=== PATIENT | female | born 1940 | race Caucasian/White ===

== ENCOUNTER 2020-02-20 15:21 | Outpatient (CLI) | payer MEDICARE ==
--- NOTE | 2020-02-20 16:36 | XRAY Report ---
PROCEDURE: Knee 4 View RT INDICATIONS: SPRAIN OF MEDIAL COLLATERAL LIGAMENT OF RT KNEE TECHNIQUE: 4 views of the right knee are obtained. COMPARISON: None. FINDINGS: Bones: There is a small linear bony fragment adjacent to the medial femoral condyle. Mild tricompart mental periarticular osteophyte formation. Soft tissues: No joint effusion. No suspicious soft tissue calcifications. IMPRESSION: 1. Small bony fragment adjacent to the medial femoral condyle which may indicate an avulsion fracture given the history of medial collateral ligament injury. MRI could be performed for further assessmen t, if clinically indicated. Reviewed by: Karely Quezada MD on 02/20/2020 4:34 PM PDT Approved by: Karely Quezada MD on 02/20/2020 4:34 PM PDT Station ID: [id number]
== END 2020-02-20 15:22 | disposition home or self-care (01) ==
LOC: DI 15:21
PROVIDERS: ATTEND Orthopaedic Surgery
DX: S83.411A Sprain of medial collateral ligament of right knee, initial encounter (principal)

== ENCOUNTER 2020-10-15 05:42 | Emergency (ER) | payer MEDICARE ==
--- NOTE | 2020-10-15 06:30 | ED Physician Documentation ---
History of Present Illness - Stated complaint Stated Complaint: R FOOT INJ - Chief complaint Chief Complaint: Ext Problem - History obtained from History obtained from: Patient - Additonal information Additional information: 80-year-old woman presents after being stepped on by a horse at 6 PM yesterday. She has a laceration between the right fourth and fifth toe. Unsure of last tetanus shot. Able to move the toe with pain. Ambulatory on the foot.Denies sensory or motor deficits Review of Systems Skin: reports: Laceration (s) Musculoskeletal: reports: Extremity pain Neurologic: denies: Focal weakness, Numbness PD PAST MEDICAL HISTORY - Past Medical History Past Medical History: No Cardiovascular: None Respiratory: None Neuro: None Endocrine/Autoimmune: None GI: None J2EE APPLICATION DEVELOPER: None : None HEENT: None Psych: None Musculoskeletal: None Derm: None - Past Surgical History Past Surgical History: Yes General: Appendectomy Ortho: Other HEENT: Tonsil/Adenoidectomy - Present Medications Home Medications: Ambulatory Orders Medication Instructions Recorded Confirmed Lactobacillus Acidophilus 1 each PO QDAC 7 Days #7 tab 10/15/20 [Acidophilus Probiotic] cephALEXin [Keflex] 500 mg PO BID #10 tab 10/15/20 - Allergies Allergies/Adverse Reactions: Allergies Allergy/AdvReac Type Severity Reaction Status Date / Time No Known Drug Allergies Allergy Verified 10/15/20 06:00 - Social History Does the pt smoke?: No Smoking Status: Never smoker Does the pt drink ETOH?: No Does the pt have substance abuse?: No - Immunizations Immunizations are current?: No - POLST Patient has POLST: No PD ED PE NORMAL - Vitals Vital signs reviewed: Yes - General General: Alert and oriented X 3, No acute distress, Well developed/nourished - HEENT HEENT: Atraumatic, PERRL, EOMI - Neck Neck: Supple, no meningeal sign - Derm Derm: Normal color, Warm and dry, Other (laceration between 4th and 5th digit of R foot) - Extremities Extremities: No deformity, Other (R fourth and fifth toe tender with flexion) - Neuro Neuro: Alert and oriented X 3, No motor deficit, No sensory deficit - Psych Psych: Normal mood, Normal affect Results - Vitals Vitals: Vital Signs - 24 hr 10/15/20 05:54 Temperature 36.4 C L Heart Rate 74 Respiratory 16 Rate Blood Pressure 152/123 H O2 Saturation 98 Oxygen O2 Source Room air PD MEDICAL DECISION MAKING - ED course ED course: 80-year-old woman presents with a laceration in the right foot between the fourth and fifth toe yesterday. Xray showed 5th phalanx minimally displaced fracture. antibiotics prescribed. tdap updated. lac repaired. patient will return in 14 days for suture removal. strict return precautions given. Departure - Departure Disposition: 01 Home, Self Care Clinical Impression: Toe fracture, Laceration Condition: Good Instructions: ED RICE Follow-Up: Eros Call MD [Provider Admit Priv/Credential] - Prescriptions: Lactobacillus Acidophilus [Acidophilus Probiotic] 1 each PO QDAC 7 Days #7 tab cephALEXin [Keflex] 500 mg PO BID #10 tab Comments: You were seen in the emergency department after breaking your right fifth toe (fifth phalanx minimally displaced open fracture) and cutting the overlying skin. Make sure you take your antibiotics as prescribed and return to the emergency department if you experience any signs of infection or have any new or worsening symptoms or other concerns. Follow-up with orthopedics in one week. Wear a hard boot and try to stay off your feet as much as possible. You will need to have your stitches removed in 14 days either here, urgent care, or th rough your primary doctor.
[2020-10-15] MEDS ORDERED: BACITRACIN ZINC OINT 1 PACKET TOP STA (06:32)
[2020-10-15] MEDS ORDERED: TETANUS/DIPHTHERIA/PERTUSSIS 0.5 ML SYRINGE IM ONE (06:33)
[2020-10-15] MEDS ORDERED: BUFFERED LIDOCAINE 10 ML SYRINGE SUBQ STA (06:46)
[2020-10-15 08:16] VITALS: BP 146/70
--- NOTE | 2020-10-15 08:16 | XRAY Report ---
PROCEDURE: Foot 3 View RT INDICATIONS: laceration of foot, stepped on by horse TECHNIQUE: 4 medial displacement of the views of the foot were acquired. COMPARISON: None FINDINGS: Bones: Acute transverse fracture through proximal shaft of fifth proximal phalanx is seen with minima l medial displacement at fracture site. Slight lateral subluxation at fifth PIP joint is also seen. N o other fracture or dislocation is seen. No suspicious bony lesions. Soft tissues: No tibiotalar joint effusion. Achilles tendon appears normal. IMPRESSION: 1. Acute minimally displaced transverse fracture through proximal to mid shaft of fifth proximal phal anx. 2. Slight lateral subluxation at fifth PIP joint. No significant discrepancy from preliminary reading. Reviewed by: Marc Cardozo MD on 10/15/2020 8:15 AM PDT Approved by: Marc Cardozo MD on 10/15/2020 8:15 AM PDT Station ID: [id number]
== END 2020-10-15 08:20 | disposition home or self-care (01) ==
LOC: ED 05:42
DX: S92.511B Displaced fracture of proximal phalanx of right lesser toe(s), initial encounter for open fracture (principal); S91.311A Laceration without foreign body, right foot, initial encounter; W55.19XA Other contact with horse, initial encounter; Z23 Encounter for immunization
CPT/HCPCS: 90471; 99282; 99283

== ENCOUNTER 2021-03-11 08:00 | Outpatient (CLI) | payer MEDICARE ==
--- NOTE | 2021-03-11 09:05 | XRAY Report ---
PROCEDURE: Foot 3 View RT INDICATIONS: RT FT PAIN, PREVIOUS HX OF RECENT RIGHT LESSER TOE FX OCTOBER 2020 TECHNIQUE: 3 views of the foot were acquired. COMPARISON: None FINDINGS: Bones: No fractures or dislocations. Mild to moderate midfoot and forefoot joint osteoarthritic bermudez ges are seen more prominent at first MTP joint. No suspicious bony lesions. Soft tissues: No tibiotalar joint effusion. Achilles tendon appears normal. 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 No fracture or dislocation. No suspicious bony lesion. Reviewed by: Marc Cardozo MD on 03/11/2021 9:03 AM PDT Approved by: Marc Cardozo MD on 03/11/2021 9:03 AM PDT Station ID: [id number]
== END 2021-03-11 23:59 | disposition home or self-care (01) ==
LOC: DI.N 08:00
PROVIDERS: ATTEND Family Medicine
DX: S92.514D Nondisplaced fracture of proximal phalanx of right lesser toe(s), subsequent encounter for fracture with routine healing (principal); M19.071 Primary osteoarthritis, right ankle and foot

== ENCOUNTER 2022-12-21 08:00 | Outpatient (CLI) | payer MEDICARE ==
--- NOTE | 2022-12-21 23:59 | XRAY Report ---
PROCEDURE: Knee 4 View RT INDICATIONS: RIGHT KNEE PAIN TECHNIQUE: 4 views of the right knee(s) were acquired. COMPARISON: X-rays right knee, 03/08/2020. FINDINGS: Bones: No fractures or dislocations. No suspicious bony lesions. Tricompartmental knee joint degene ration. [id number] joint space narrowing with weightbearing in the medial femorotibial compar tment. Increased periarticular spurring. Soft tissues: Small knee joint effusion. No suspicious soft tissue calcifications or masses. IMPRESSION: 1. Worsening of osteoarthritis. 2. Small knee joint effusion. Reviewed by: Pearl Egn MD on 12/21/2022 11:56 PM PDT Approved by: Pearl Eng MD on 12/21/2022 11:56 PM PDT Station ID: [id number]
== END 2022-12-21 23:59 | disposition home or self-care (01) ==
LOC: DI.WOS 08:00
PROVIDERS: ATTEND Physician Assistant Surgical
DX: M17.11 Unilateral primary osteoarthritis, right knee (principal); M25.461 Effusion, right knee